=== PATIENT | male | born 1945 | race Caucasian/White ===

== ENCOUNTER 2017-05-04 19:42 | Outpatient (CLI) | payer MEDICARE ==
[~2017-05-04 19:42] MED LIST: APIX5TAB2 PO; ASP81CT PO; CHOLESTEROL MED PO; IBP200T PO; LISI20TA PO; MECL25TA56 PO; OMEG1CAP51 PO; OMEP40CA36 PO; PRAV80TA2 PO
== END 2017-05-05 06:00 | disposition home or self-care (01) ==
LOC: SLEEP 19:42
PROVIDERS: ATTEND Otolaryngology Otolaryngology/Facial Plastic Surgery
DX: G47.33 Obstructive sleep apnea (adult) (pediatric) (principal)
CPT/HCPCS: 95811

== ENCOUNTER → 2018-03-29 | Outpatient (CLI) | payer MEDICARE ==
--- NOTE | 2018-03-29 15:06 | Diagnostic Imaging Report ---
PROCEDURE: CT lumbar spine without contrast. TECHNIQUE: Multiple contiguous axial images were obtained through the lumbar spine without the use of intravenous contrast. Sagittal and coronal reformations were then performed. INDICATION: Low back pain for two months. Curvature is normal. There is mild anterolisthesis of L4 on L5. Vertebral body heights are maintained. No acute compression fracture is identified. Multilevel degenerative disc disease is seen. This is most severe at the L5-S1 level where there is complete loss of the disc space as well as endplate sclerosis and marginal osteophyte formation. Marked facet arthropathy is seen at L4-L5 and L5-S1 levels. There appears to be significant trefoil stenosis of the canal at L4-L5. No fractures are identified. Aorta is calcified. There appears to be some aneurysmal dilatation of the distal abdominal aorta, not entirely included on the study but at least 3.4 cm in diameter. IMPRESSION: 1. Lumbar spondylosis with L4-L5 listhesis and significant lower lumbar facet arthropathy. There appears to be central canal stenosis at L4-L5. No acute compression fracture is seen. 2. Distal abdominal aortic aneurysm. Dictated by: Dictated on workstation # [id number]
== END ==
LOC: RAD 13:40
DX: M47.816 Spondylosis without myelopathy or radiculopathy, lumbar region (principal); M43.16 Spondylolisthesis, lumbar region; M46.86 Other specified inflammatory spondylopathies, lumbar region; I71.4 Abdominal aortic aneurysm, without rupture
CPT/HCPCS: 72131

== ENCOUNTER → 2019-03-05 | Outpatient (CLI) | payer MEDICARE ==
--- NOTE | 2019-03-05 19:22 | Diagnostic Imaging Report ---
EXAMINATION: Supine abdomen at 04:03 p.m. INDICATION: Nephrolithiasis, left flank pain. Two supine views of the abdomen were obtained. There are few calcific densities on each side of the pelvis. These are similar to the prior lumbar spine exam of 03/22/2018. There is no evidence for a calculus overlying either kidney, although both kidneys are obscured by bowel gas and fecal material. The bowel gas pattern is nonspecific. There is no acute abnormality noted. There is no mass, organomegaly or pathological calcification evident. Surgical clips are in the region of the gastroesophageal junction. There is degenerative disc and bony disease at L4-L5 and L5-S1. IMPRESSION: 1. There is no evidence for a calculus overlying either kidney. However, both kidneys are partially obscured by bowel gas and fecal material. If further evaluation for nephrolithiasis or urolithiasis is desired, then CT would be recommended. 2. There is no acute abnormality of the abdomen. Dictated by: Dictated on workstation # [id number]
== END ==
LOC: RAD 15:46
PROVIDERS: ATTEND Nurse Practitioner Family
DX: R10.9 Unspecified abdominal pain (principal); Z98.890 Other specified postprocedural states
CPT/HCPCS: 74018

== ENCOUNTER 2019-10-21 11:40 | Emergency (ER) | payer MEDICARE ==
[~2019-10-21] VITALS: Ht 182.8 cm; Wt 100.0 kg
[2019-10-21] MEDS ORDERED: NS IV 1000 ML 1,000 ML IV ONE (11:44)
--- NOTE | 2019-10-21 12:27 | ED Neurological Problem ---
General Stated Complaint: DIZZINESS,VOMITING Source: patient Exam Limitations: no limitations History of Present Illness Date Seen by Provider: Oct 21, 2019 Time Seen by Provider: 12:25 Initial Comments To ER with dizziness and vomiting. On Monday he developed a stiff neck on the left side, unable to extend or flex his head, unable to turn his head to either side. He has had troubles with this before but not for a long time. He then developed some dizziness which she has also had intermittently but not for long time. He has nausea and vomiting. No fevers or chills no head trauma. Did have a lumbar laminectomy with Dr. Will 3 months ago. He's had a good recovery from that with no issues as of yet. Severity: moderate Associated Symptoms: nausea/vomiting Allergies and Home Medications Allergies Coded Allergies: amoxicillin (Verified Allergy, Mild, 04/07/15) clavulanic acid (Verified Allergy, Mild, 04/07/15) hydrocodone (Verified Allergy, Unknown, NAUSEA, 04/07/15) Home Medications Apixaban 5 Mg Tablet, 5 MG PO BID Prescribed by: CIPRINAO WELLER on 04/08/15 1048 Docosahexanoic Acid/Epa 1 Cap Capsule, 1,000 MG PO BID, (Reported) Lisinopril 20 Mg Tablet, 20 MG PO DAILY, (Reported) Omeprazole 40 Mg Capsule.dr, 40 MG PO DAILY, (Reported) Pravastatin Sodium 80 Mg Tablet, 80 MG PO HS, (Reported) Patient Home Medication List Home Medication List Reviewed: Yes Review of Systems Review of Systems Constitutional: see HPI Eyes: No Symptoms Reported Ears, Nose, Mouth, Throat: no symptoms reported Respiratory: no symptoms reported Cardiovascular: no symptoms reported Genitourinary: no symptoms reported Musculoskeletal: no symptoms reported Skin: no symptoms reported Psychiatric/Neurological: No Symptoms Reported Endocrine: No Symptoms Reported Past Erjnhsf-Ozfgkh-Mqvhcw Hx Patient Social History Recent Foreign Travel: No Contact w/Someone Who Travel: No Immunizations Up To Date Tetanus Booster (TDap): Unknown PED Vaccines UTD: No Seasonal Allergies Seasonal Allergies: No Past Medical History Cardiac, CABG, Orthopedic, Valve Replacement Coronary Artery Disease, High Cholesterol, Hypertension, Valvular Heart Disease Reproductive Disorders: No Sexually Transmitted Disease: No HIV/AIDS: No Arthritis Cataract Loss of Vision: Denies Hearing Impairment: Denies Adverse Reaction/Blood Tranf: No Family Medical History Alzheimer's disease 19 MOTHER Arthritis 19 MOTHER G8 SISTER Cardiovascular disease 19 FATHER 19 MOTHER Cataracts 19 MOTHER Colon cancer 19 MOTHER Completed stroke G8 SISTER Dementia 19 MOTHER Diabetes mellitus 19 FATHER Hypercholesterolemia G8 SISTER Hypertension G8 SISTER Myocardial infarction 19 FATHER Thyroid disease G8 SISTER No Family History of: AIDS Abdominal aortic aneurysm [place]'s disease Alcoholism Aphasia Cancer of mouth Congenital disease Congenital heart disease Coronary thrombosis Cystic fibrosis Deafness or hearing loss Drug abuse Dysphasia Fibrocystic disease of breast Gastroenteritis Glaucoma Headache disorder Infertility Kidney disease Neoplasm Not obtainable due to adoption Osteoporosis Parkinson's disease Prostate cancer Psychosocial problem Respiratory disorder Seizure disorder Severe allergy Tuberculosis Visual disorder No Pertinent Family Hx Physical Exam Vital Signs Vital Signs - First Documented 10/21/19 10/21/19 12:07 12:40 Temp 36.3 Pulse 81 Resp 16 B/P (MAP) 138/78 (98) Pulse Ox 96 O2 Delivery Room Air O2 Flow Rate 2.00 Capillary Refill : Height, Weight, BMI Height: 6'1.00" Weight: 225lbs. 1.0oz. [id number]; BMI Method:Estimated General Appearance: WD/WN, no apparent distress Neck: non-tender, full range of motion Respiratory: lungs clear, normal breath sounds, no respiratory distress, no acc essory muscle use Cardiovascular: regular rate, rhythm, no murmur Gastrointestinal: normal bowel sounds, non tender, soft Neurologic/Psychiatric: alert, normal mood/affect, oriented x 3 Crainal Nerves: normal hearing, normal speech, PERRL Skin: normal color, warm/dry Stroke Stroke Thrombolytic Exclusion Age 18 or Over: Yes History of CVA: No Severe Hypertension: No GI or Bleed: No Subarachnoid Hemorrhage: No Intracranial Neoplasm/Aneurysm: No Puncture of Non-Compressible V: No Recent CPR: No Diabetic Hemorrhagic Retinopat: No Organ Biopsy: No Recent Obstetric Delivery: No Significant Hepatic Dysfunctio: No NIH Stoke Scale >22: No Improving Symptoms: No Progress/Results/Core Measures Results/Orders Lab Results Laboratory Tests Test 10/21/19 12:15 Range/Units White Blood Count 8.7 4.3-11.0 10^3/uL Red Blood Count 4.92 4.35-5.85 10^6/uL Hemoglobin 14.4 13.3-17.7 G/DL Hematocrit 43 40-54 % Mean Corpuscular Volume 88 80-99 FL Mean Corpuscular Hemoglobin 29 25-34 PG Mean Corpuscular Hemoglobin Concent 33 32-36 G/DL Red Cell Distribution Width 13.9 10.0-14.5 % Platelet Count 243 130-400 10^3/uL Mean Platelet Volume 8.6 7.4-10.4 FL Neutrophils (%) (Auto) 88 H 42-75 % Lymphocytes (%) (Auto) 7 L 12-44 % Monocytes (%) (Auto) 5 0-12 % Eosinophils (%) (Auto) 0 0-10 % Basophils (%) (Auto) 0 0-10 % Neutrophils # (Auto) 7.7 1.8-7.8 X 10^3 Lymphocytes # (Auto) 0.6 L 1.0-4.0 X 10^3 Monocytes # (Auto) 0.4 0.0-1.0 X 10^3 Eosinophils # (Auto) 0.0 0.0-0.3 10^3/uL Basophils # (Auto) 0.0 0.0-0.1 10^3/uL Neutrophils % (Manual) 82 % Lymphocytes % (Manual) 9 % Monocytes % (Manual) 3 % Eosinophils % (Manual) 1 % Basophils % (Manual) 0 % Band Neutrophils 5 % Elliptocytes SLIGHT Sodium Level 135 135-145 MMOL/L Potassium Level 4.3 3.6-5.0 MMOL/L Chloride Level 103 98-107 MMOL/L Carbon Dioxide Level 24 21-32 MMOL/L Anion Gap 8 5-14 MMOL/L Blood Urea Nitrogen 20 H 7-18 MG/DL Creatinine 1.02 0.60-1.30 MG/DL Estimat Glomerular Filtration Rate > 60 BUN/Creatinine Ratio 20 Glucose Level 122 H 70-105 MG/DL Calcium Level 9.1 8.5-10.1 MG/DL Corrected Calcium 8.9 8.5-10.1 MG/DL Magnesium Level 1.7 1.6-2.4 MG/DL Total Bilirubin 0.3 0.1-1.0 MG/DL Aspartate Amino Transf (AST/SGOT) 15 5-34 U/L Alanine Aminotransferase (ALT/SGPT) 17 0-55 U/L Alkaline Phosphatase 106 40-136 U/L Total Protein 7.8 6.4-8.2 GM/DL Albumin 4.3 3.2-4.5 GM/DL My Orders Orders - TOVAR,PETER J HEALTH EDUCATION ASSISTANT Ct Angio Head/Neck (10/21/19 12:22) Ketorolac Injection (Toradol Injection) (10/21/19 12:30) Orphenadrine Injection (Norflex Injectio (10/21/19 12:30) Ondansetron Injection (Zofran Injectio (10/21/19 12:30) Meclizine Tablet (Antivert Tablet) (10/21/19 12:30) Iohexol Injection (Omnipaque 350 Mg/Ml 1 (10/21/19 12:45) Received Contrast (Hold Metformin- Contr (10/21/19 12:45) Ns (Ivpb) (Sodium Chloride 0.9% Ivpb Bag (10/21/19 12:45) Received Contrast (Hold Metformin- Contr (10/21/19 13:00) Medications Given in ED Current Medications Medications Dose Ordered Sig/Stefan Route Start Time Stop Time Status Last Admin Dose Admin Iohexol 75 ml ONCE ONCE IV 10/21/19 12:45 10/21/19 12:46 DC 10/21/19 13:26 75 ML Ketorolac Tromethamine 15 mg ONCE ONCE IVP 10/21/19 12:30 10/21/19 12:31 DC 10/21/19 12:29 15 MG Meclizine HCl 25 mg ONCE ONCE PO 10/21/19 12:30 10/21/19 12:31 DC 10/21/19 12:38 25 MG Ondansetron HCl 4 mg ONCE ONCE IVP 10/21/19 12:30 10/21/19 12:31 DC 10/21/19 12:28 4 MG Orphenadrine Citrate 60 mg ONCE ONCE IV 10/21/19 12:30 10/21/19 12:31 DC 10/21/19 12:33 60 MG Sodium Chloride 100 ml ONCE ONCE IV 10/21/19 12:45 10/21/19 12:46 DC 10/21/19 13:27 80 ML Sodium Chloride 1,000 ml @ 0 mls/hr Q0M ONCE IV 10/21/19 11:44 10/21/19 11:46 DC 10/21/19 12:36 1,000 MLS/HR Vital Signs/I&O 10/21/19 10/21/19 12:07 12:40 Temp 36.3 Pulse 81 Resp 16 B/P (MAP) 138/78 (98) Pulse Ox 96 96 O2 Delivery Room Air Nasal Cannula O2 Flow Rate 2.00 Progress Progress Note : Progress Note NAME: KJ JEFFERY [facility] REC#: [id number] PT STATUS: REG ER : 1945 PHYSICIAN: CATE TOVAR HEALTH EDUCATION ASSISTANT ADMIT DATE: 10/21/19/ER Draft Date of Exam:10/21/19 CT ANGIO HEAD/NECK CLINICAL HISTORY: Patient with dizziness and stiff neck. EXAMS: 1. Head CT with and without IV contrast. Auto Exposure Controls were utilized during the CT exam to meet ALARA standards for radiation dose reduction. 2. CT angiogram of the head and neck performed with 100 cc of Omnipaque 350 IV contrast. Sagittal and coronal MIP reformations were created for better visualization of vascular anatomy. COMPARISON: MRI of the brain performed without and with IV contrast and MRA of the head dated 04/07/2015. FINDINGS: HEAD CT: There is no gross CT evidence of acute cerebral infarct, intracranial hemorrhage, or gross mass effect. There is no abnormal IV contrast enhancement. There is interval evolution of the previously seen peripheral cortical infarcts and white matter infarcts involving the right parietal lobe with minimal transcortical low-density changes. The brain parenchymal volume appears appropriate for patient's age. There are subtle patchy areas of low attenuation white matter changes involving both cerebral hemispheres, likely representing chronic small vessel ischemic disease. There is normal levy/white matter distinction. There is no significant midline shift or herniation. There is no evidence of hydrocephalus. The basal cisterns are unremarkable. The skull, extracranial soft tissue, and orbits are unremarkable. There is mild mucosal thickening involving the ethmoid sinus and frontal sinus. There is minimal mucosal thickening involving the left maxillary sinus. The temporal bones show no significant abnormality. CT ANGIOGRAM: There is dense contrast bolus seen within the left subclavian vein and innominate vein. The proximal aortic arch is not completely imaged on the axial sequence and the origin of the brachiocephalic artery is not visualized. The visualized portions of the right brachiocephalic artery are patent. The bilateral subclavian arteries and bilateral common carotid arteries are patent. There is an area of mild atherosclerotic disease involving the proximal cervical left ICA which causes mild stenosis. The remainder of the left cervical ICA is patent. The right cervical ICA is patent. The bilateral ECAs are patent. The bilateral petrous and cavernous ICAs are patent. The origins of the bilateral cervical vertebral arteries are obscured by patient body habitus, streak artifact, and dense contrast streak artifact. The remainder of the bilateral cervical vertebral arteries is patent. The bilateral PICA are patent. The bilateral intradural vertebral arteries, basilar artery, bilateral superior cerebellar arteries, and bilateral PRODUCT DEVELOPMENT WORKER are patent as visualized. A small caliber left A1 CORRINA is seen with a prominent anterior communicating artery. The bilateral ACAs and their distal branches are patent. The bilateral MCAs and their distal branches are patent. The dural venous sinuses are patent. The neck soft tissue structures are unremarkable. Emphysematous paraseptal lung changes and atelectasis or scarring are noted in both upper lung petersen. Cervical spine degenerative spurs are noted. IMPRESSION: 1. There is no CT evidence of an acute intracranial process. There is no abnormal IV contrast enhancement. 2. The CT angiogram of the [place] and neck shows no significant stenosis, vascular malformation, aneurysm, or dissection. 3. 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 Dictated on workstation # [id number] Dict: 10/21/19 1327 Trans: 10/21/19 [facility]0 [id number] Interpreted by: JORGE AMEZCUA MD Electronically signed by: Departure Communication (Admissions) [id number]-feeling quite a bit better at this time. Impression Primary Impression: Vertigo Additional Impression: Torticollis Disposition: HOME, SELF-CARE Condition: Stable Departure-Patient Inst. Decision time for Depature: 13:56 Referrals: ESTHER GOMEZ MD (PCP/Family) Primary Care Physician Patient Instructions: Torticollis (DC), Vertigo (a Type of Dizziness) Add. Discharge Instructions: Do not take the baclofen in addition to the methocarbamol (Robaxin). Take either one or the other For the neck pain. Continue to use your meclizine 1 tablet every 8 hours as needed for dizziness. Follow-up with your doctor later this week for recheck. Scripts Methocarbamol (Robaxin-750) 750 Mg Tablet 750 MG PO Q4H PRN for PAIN-MODERATE (5-7), #20 TAB Prov: CATE TOVAR APRN 10/21/19 CATE TOVAR APRN Oct 21, 2019 12:27
[2019-10-21 12:28] LABS: BASOPHILS % (AUTO) 0 % (0-10); EOSINOPHILS % (AUTO) 0 % (0-10); HEMATOCRIT 43 % (40-54); HEMOGLOBIN 14.4 G/DL (13.3-17.7); LYMPHOCYTES # (AUTO) 0.6 X 10^3 (1.0-4.0); LYMPHOCYTES % (AUTO) 7 % (12-44); MEAN CORPUSCULAR HEMOGLOBIN 29 PG (25-34); MEAN CORPUSCULAR HGB CONC 33 G/DL (32-36); MEAN CORPUSCULAR VOLUME 88 FL (80-99); MEAN PLATELET VOLUME 8.6 FL (7.4-10.4); MONOCYTES # (AUTO) 0.4 X 10^3 (0.0-1.0); MONOCYTES % (AUTO) 5 % (0-12); NEUTROPHILS # (AUTO) 7.7 X 10^3 (1.8-7.8); NEUTROPHILS % (AUTO) 88 % (42-75); PLATELET COUNT 243 10^3/uL (130-400); RED CELL DISTRIBUTION WIDTH 13.9 % (10.0-14.5); WHITE BLOOD COUNT 8.7 10^3/uL (4.3-11.0)
[2019-10-21] MEDS ORDERED: ONDANSETRON 4 MG/2 ML (SDV) Z0FRAN IVP ONE (12:30)
[2019-10-21] MEDS ORDERED: KETOROLAC 30 MG/ML VIAL IVP ONE (12:30)
[2019-10-21] MEDS ORDERED: MECLIZINE 25 MG (ANTIVERT) TAB PO ONE (12:30)
[2019-10-21] MEDS ORDERED: ORPHENADRINE 60 MG/2 ML (NORFLEX) AMP IV ONE (12:30)
[2019-10-21] MEDS ORDERED: NS 100 ML (IVPB) BAG IV ONE ×2 (12:45→13:00)
[2019-10-21] MEDS ORDERED: IOHEXOL 350 MG/ML 100 ML (OMNIPAQUE 350) VIAL IV ONE ×2 (12:45→13:00)
[2019-10-21] MEDS ORDERED: HOLD METFORMIN - RECEIVED CONTRAST 20 ML VIAL IV SCH ×2 (12:45→13:00)
[2019-10-21 12:47] LABS: ALANINE AMINOTRANSFERASE 17 U/L (0-55); ALBUMIN 4.3 GM/DL (3.2-4.5); ALKALINE PHOSPHATASE 106 U/L (40-136); BILIRUBIN,TOTAL 0.3 MG/DL (0.1-1.0); BUN/CREATININE RATIO 20; CALCIUM 9.1 MG/DL (8.5-10.1); CARBON DIOXIDE 24 MMOL/L (21-32); CHLORIDE 103 MMOL/L (98-107); CREATININE SERUM 1.02 MG/DL (0.60-1.30); GFR ESTIMATED > 60; GLUCOSE 122 MG/DL (70-105); MAGNESIUM 1.7 MG/DL (1.6-2.4); POTASSIUM 4.3 MMOL/L (3.6-5.0); SODIUM 135 MMOL/L (135-145); TOTAL PROTEIN 7.8 GM/DL (6.4-8.2)
[2019-10-21 13:03] LABS: BAND NEUTROPHILS 5 %; BASOPHILS % (MANUAL) 0 %; ELLIPT/OVALOCYTES SLIGHT; EOSINOPHILS % (MANUAL) 1 %; LYMPHOCYTES % (MANUAL) 9 %; MONOCYTES % (MANUAL) 3 %; NEUTROPHILS % (MANUAL) 82 %
--- NOTE | 2019-10-21 13:50 | Diagnostic Imaging Report ---
CLINICAL HISTORY: Patient with dizziness and stiff neck. EXAMS: 1. Head CT with and without IV contrast. Auto Exposure Controls were utilized during the CT exam to meet ALARA standards for radiation dose reduction. 2. CT angiogram of the head and neck performed with 100 cc of Omnipaque 350 IV contrast. Sagittal and coronal MIP reformations were created for better visualization of vascular anatomy. COMPARISON: MRI of the brain performed without and with IV contrast and MRA of the head dated 04/07/2015. FINDINGS: HEAD CT: There is no gross CT evidence of acute cerebral infarct, intracranial hemorrhage, or gross mass effect. There is no abnormal IV contrast enhancement. There is interval evolution of the previously seen peripheral cortical infarcts and white matter infarcts involving the right parietal lobe with minimal transcortical low-density changes. The brain parenchymal volume appears appropriate for patient's age. There are subtle patchy areas of low attenuation white matter changes involving both cerebral hemispheres, likely representing chronic small vessel ischemic disease. There is normal levy/white matter distinction. There is no significant midline shift or herniation. There is no evidence of hydrocephalus. The basal cisterns are unremarkable. The skull, extracranial soft tissue, and orbits are unremarkable. There is mild mucosal thickening involving the ethmoid sinus and frontal sinus. There is minimal mucosal thickening involving the left maxillary sinus. The temporal bones show no significant abnormality. CT ANGIOGRAM: There is dense contrast bolus seen within the left subclavian vein and innominate vein. The proximal aortic arch is not completely imaged on the axial sequence and the origin of the brachiocephalic artery is not visualized. The visualized portions of the right brachiocephalic artery are patent. The bilateral subclavian arteries and bilateral common carotid arteries are patent. There is an area of mild atherosclerotic disease involving the proximal cervical left ICA which causes mild stenosis. The remainder of the left cervical ICA is patent. The right cervical ICA is patent. The bilateral ECAs are patent. The bilateral petrous and cavernous ICAs are patent. The origins of the bilateral cervical vertebral arteries are obscured by patient body habitus, streak artifact, and dense contrast streak artifact. The remainder of the bilateral cervical vertebral arteries is patent. The bilateral PICA are patent. The bilateral intradural vertebral arteries, basilar artery, bilateral superior cerebellar arteries, and bilateral LPN MEDICAL ASSISTANT are patent as visualized. A small caliber left A1 CORRINA is seen with a prominent anterior communicating artery. The bilateral ACAs and their distal branches are patent. The bilateral MCAs and their distal branches are patent. The dural venous sinuses are patent. The neck soft tissue structures are unremarkable. Emphysematous paraseptal lung changes and atelectasis or scarring are noted in both upper lung petersen. Cervical spine degenerative spurs are noted. IMPRESSION: 1. There is no CT evidence of an acute intracranial process. There is no abnormal IV contrast enhancement. 2. The CT angiogram of the [place] and neck shows no significant stenosis, vascular malformation, aneurysm, or dissection. 3. 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 Dictated by: Dictated on workstation # [id number]
[2019-10-21] MEDS ORDERED: METH-313 PO (14:25)
[2019-10-21 14:34] VITALS: BP 122/84
== END 2019-10-21 14:36 | disposition home or self-care (01) ==
LOC: EDUNIT# 11:40 → ER 11:41
DX: R42 Dizziness and giddiness (principal); M43.6 Torticollis; I10 Essential (primary) hypertension; I25.10 Atherosclerotic heart disease of native coronary artery without angina pectoris; E78.00 Pure hypercholesterolemia, unspecified; Z95.1 Presence of aortocoronary bypass graft; Z88.0 Allergy status to penicillin; Z88.1 Allergy status to other antibiotic agents; Z88.5 Allergy status to narcotic agent; Z79.01 Long term (current) use of anticoagulants; Z80.0 Family history of malignant neoplasm of digestive organs; Z82.49 Family history of ischemic heart disease and other diseases of the circulatory system
CPT/HCPCS: 36415; 70496; 70498; 80053; 83735; 85007; 85027

== ENCOUNTER 2020-06-01 01:37 | Emergency (ER) | payer MEDICARE ==
[~2020-06-01] VITALS: Ht 183 cm; Wt 95.5 kg
[~2020-06-01 01:37] MED LIST changes: +METH-313 PO
[2020-06-01 02:12] VITALS: BP 137/76
--- NOTE | 2020-06-01 02:15 | NUR ---
PT INFORMED ERP IN WITH ANOTHER PT.
[2020-06-01] MEDS ORDERED: LACTATED RINGERS 1,000 ML IV ONE (02:20)
[2020-06-01 02:23] LABS: BILIRUBIN,URINE NEGATIVE (NEGATIVE); CLARITY,URINE CLEAR; COLOR,URINE YELLOW; GLUCOSE, URINE (UA) NEGATIVE (NEGATIVE); KETONES,URINE NEGATIVE (NEGATIVE); LEUKOCYTE ESTERASE ,URINE NEGATIVE (NEGATIVE); NITRITE,URINE NEGATIVE (NEGATIVE); PH,URINE 5.5 (5-9); PROTEIN,URINE 1+ (NEGATIVE)
[2020-06-01 02:29] LABS: AMORPHOUS SEDIMENT,UR FEW AMOR URATES /LPF; BACTERIA,URINE TRACE /HPF; WBC,URINE RARE /HPF
[2020-06-01] MEDS ORDERED: OMEP20CA18 (02:33)
[2020-06-01] MEDS ORDERED: LISI-552 (02:33)
[2020-06-01] MEDS ORDERED: ATOR40TA70 (02:33)
[2020-06-01] MEDS ORDERED: CLOP75TA28 (02:33)
[2020-06-01] MEDS ORDERED: ONDANSETRON 4 MG/2 ML (SDV) Z0FRAN IVP ONE (02:45)
--- NOTE | 2020-06-01 02:45 | NUR ---
PT INFORMED OF ANTICIPATED TIME FOR LAB RESULTS, ET. THAT ERP WAS STILL IN DOING PROCEDURE.
[2020-06-01 02:54] LABS: BASOPHILS % (AUTO) 0 % (0-10); EOSINOPHILS % (AUTO) 1 % (0-10); HEMATOCRIT 42 % (40-54); HEMOGLOBIN 14.4 G/DL (13.3-17.7); LYMPHOCYTES # (AUTO) 1.1 X 10^3 (1.0-4.0); LYMPHOCYTES % (AUTO) 14 % (12-44); MEAN CORPUSCULAR HEMOGLOBIN 31 PG (25-34); MEAN CORPUSCULAR HGB CONC 34 G/DL (32-36); MEAN CORPUSCULAR VOLUME 90 FL (80-99); MEAN PLATELET VOLUME 8.6 FL (7.4-10.4); MONOCYTES # (AUTO) 0.8 X 10^3 (0.0-1.0); MONOCYTES % (AUTO) 11 % (0-12); NEUTROPHILS % (AUTO) 75 % (42-75); PLATELET COUNT 226 10^3/uL (130-400); WHITE BLOOD COUNT 7.9 10^3/uL (4.3-11.0)
[2020-06-01 03:05] LABS: ALBUMIN 4.2 GM/DL (3.2-4.5); POTASSIUM 4.2 MMOL/L (3.6-5.0)
[2020-06-01 03:06] LABS: CALCIUM 8.8 MG/DL (8.5-10.1)
[2020-06-01 03:07] LABS: INR 1.1 (0.8-1.4); PROTHROMBIN TIME PATIENT 14.5 SEC (12.2-14.7)
[2020-06-01 03:08] LABS: TOTAL PROTEIN 7.8 GM/DL (6.4-8.2)
[2020-06-01 03:09] LABS: BILIRUBIN,TOTAL 0.6 MG/DL (0.1-1.0)
[2020-06-01 03:11] LABS: CREATININE SERUM 1.28 MG/DL (0.60-1.30)
== END 2020-06-01 03:12 | disposition left against medical advice (07) ==
LOC: EDUNIT# 01:37 → ER 01:39
DX: R10.9 Unspecified abdominal pain (principal)
CPT/HCPCS: 36415; 80053; 81000; 82150; 83690; 85025; 85610; 85730